=== PATIENT | female | born 1970 | race Caucasian/White ===

== ENCOUNTER 2017-11-30 11:27 | Emergency (ER) | payer SELFPAY ==
[2017-11-30 12:06] LABS: BASOPHILS 0.3 % (0-2); EOSINOPHILS 1.2 % (0-7); HEMATOCRIT 41.2 % (36.0-48.0); HEMOGLOBIN 13.6 g/dL (12-16); IMMATURE GRANULOCYTES 0.3 % (0-5); LYMPHOCYTES 17.4 % (15-50); MCV 93.8 fL (80.0-100.0); MEAN PLATELET VOLUME 8.4 fL (7.4-10.4); MONOCYTES 4.6 % (2-11); NEUTROPHILS 76.2 % (40-80); PLATELET COUNT 319 10x3/uL (130-400); RBC 4.39 10x6/uL (4.00-5.40); WBC 9.7 10x3/uL (4.8-10.8)
[2017-11-30 12:14] LABS: APPEARANCE HAZY (CLEAR); BACTERIA MODERATE /hpf (NONE SEEN); BILIRUBIN NEGATIVE (NEGATIVE); COLOR YELLOW (YELLOW); GLUCOSE NEGATIVE (NEGATIVE); KETONE NEGATIVE (NEGATIVE); MUCUS >1+ /lpf (NONE SEEN); NITRITE NEGATIVE (NEGATIVE); PROTEIN NEGATIVE (NEGATIVE); RED CELLS - URINE 0-5 /hpf (0-5); SPECIFIC GRAVITY 1.025 (1.005-1.020); SPERMATOZOA RARE /hpf (NONE SEEN); UROBILINOGEN NORMAL (NORMAL)
[2017-11-30 12:28] LABS: ALBUMIN 3.8 g/dL (3.4-5.0); ANION GAP 12.1 mmol/L (8-16); BILIRUBIN - TOTAL 0.57 mg/dL (0.2-1.3); CALCIUM 9.2 mg/dL (8.5-10.1); CARBON DIOXIDE 28.9 mmol/L (21.0-32.0); CREATININE - SERUM 1.1 mg/dL (0.6-1.3); PROTEIN - SERUM 7.5 g/dL (6.4-8.2)
[2017-11-30 13:30] LABS: HCG SERUM NEGATIVE (NEGATIVE)
== END 2017-11-30 14:54 | disposition home or self-care (01) ==
LOC: D.ER 11:27
PROVIDERS: Emergency Medicine
DX: M54.9 Dorsalgia, unspecified (principal); W19.XXXA Unspecified fall, initial encounter; Y93.89 Activity, other specified; Y92.019 Unspecified place in single-family (private) house as the place of occurrence of the external cause; F17.200 Nicotine dependence, unspecified, uncomplicated

== ENCOUNTER 2019-05-04 13:36 | Inpatient (IN) | payer MEDICAID ==
[~2019-05-04] VITALS: Ht 170.2 cm; Wt 72.6 kg
--- NOTE | ~2019-05-04 | HEMODYNAMI ---
PATIENT:ROSALIA ADAMS MEDICAL RECORD: [id number] : 66 LOCATION:D. D.1204 ADMISSION DATE: 05/04/19 Generatedon:05/08/201913:19 Patient name: ROSALIA ADAMS Patient #: [id number] SSN: D OB: 1970 Date of study: 05/08/2019 Page: Of Hemodynamic Procedure Report Patient Data Patient Demographics Procedure consent was obtained First Name: ROSALIA Gender: Female Last Name: ANGIE : 1970 Middle Initial: L Age: 48 year(s) Patient #: [id number] Race: Unknown Additional ID: [id number] Contact details Address: [address] [place] [address] 8 State: [place] City: [facility] Zip code: [address] Admission Admission Data Admission Date: 05/04/2019 Admission Time: 17:15 Room #: D.1204 Procedure Procedure Types Cath Procedure Peripheral Cath Diagnostic Procedure PICC PICC Line Placement Procedure Description Procedure Date Procedure Date: 05/08/2019 Procedure Start Time: 13:09 Procedure Staff Name Function Rocio Wiggins MD Performing Physician NICK RAUSCH RT Monitor Dennis Aponte RT Scrub Adwoa Walter RN Nurse Alejandra Mercado RN Nurse Procedure Data Cath Procedure Fluoroscopy Diagnostic fluoroscopy Total fluoroscopy Time: 0.3 time: 0.3 min min Diagnostic fluoroscopy Total fluoroscopy dose: 1 dose: 1 mGy mGy Hemodynamics Rest Pre Cath Intra NCS Post Cath Procedure Log Time Note 12:44:40 Time tracking: Regular hours (M-F 7:00 - 5:00) 12:44:42 Dennis Aponte RT (R) (CV) sent for patient. Start room use. 12:44:53 Patient received from Other to IR Alert and oriented. Tansferred to table in Supine position. 12:44:55 Signed procedure consent form obtained from patient. 12:44:57 Pre-procedure instructions explained to patient. 12:45:02 Use device set IR Diagnostic 12:45:05 Bag Decanter () opened to sterile field. 12:45:05 Sterile Angiographic Pack opened to sterile field. 12:45:06 Tegaderm 4 x 4 ([id number]) opened to sterile field. 12:45:09 Use device set PICC 12:45:10 SHIELD Sorbaview ([id number]) opened to sterile field. 12:45:20 Pre-op teaching completed and patient verbalized understanding. 13:03:19 Left Arm area was prepped with chlora-prep and draped in sterile fashion 13:06:28 --------ALL STOP TIME OUT------ 13:06:29 Final Timeout: patient, procedure, and site verified with staff and physician. All members of the team are in agreement. 13:06:47 Left Arm area was prepped with chlora-prep and draped in sterile fashion 13:07:49 Procedure Started 13:09:38 Local anesthetic to left arm with Lidocaine 1% by Rocio Wiggins MD.INITIAL ACCESS ONLY 13:09:45 Venous access obtained using ultrasound guidance. 13:10:35 PICC line was trimmed to 44cm and advanced to the superior vena cava.Position verified under fluoroscopy. 13:16:18 Procedure ended.(Physican Out) 13:16:41 Fluoroscopy time 00.03 minutes. 13:16:54 Fluoroscopy dose: 1 mGy 13:16:54 Flurop Dose total: 1 13:17:09 Post procedure instruction explained to patient.Patient verbalizes understanding. 13:17:27 Post-op/insertion site Left Axiliary dressed using a SorbaView Sheild. 13:17:30 Procedure and supply charges have been captured, reviewed, submitted and are correct. 13:19:02 See physician's report for complete and final results. 13:19:08 Patient transfered to Other with Bed. 13:19:09 End room use (Document Last) Device Usage Item Name Manufacture Quantity Catalog Hospital Part Current Minimal Lot# / Number Charge Number Stock Stock Serial# Code Bag Decanter Microtek 1 [id number] () Medical Inc. Sterile Cardinal 1 [id number] 5 Angiographic Health Pack Tegaderm 4 x 3M 1 [id number] 4 (1626W) SHIELD Centurion 1 [id number] 5 Morganavi ([id number]) Signature Audit [place] Stage Time Signature Unsigned Intra-Procedure 05/08/2019 NICK RAUSCH RT 1:19:25 PM (R) [facility] [address] [place] [address]
[2019-05-04] MEDS ORDERED: IBUPROFEN800 MG PO (13:56)
[2019-05-04] MEDS ORDERED: BENADRYL25 MG PO (13:57)
--- NOTE | 2019-05-04 14:00 | NUR ---
LT DP PULSE NOTED WITH DOPPLER. CAP REFILL <3 SEC.
[2019-05-04 14:27] LABS: BASOPHILS 0.5 % (0-2); EOSINOPHILS 1.8 % (0-7); HEMATOCRIT 37.5 % (36.0-48.0); HEMOGLOBIN 12.3 g/dL (12-16); IMMATURE GRANULOCYTES 0.2 % (0-5); LYMPHOCYTES 19.1 % (15-50); MCH 30.4 pg (26.0-34.0); MCHC 32.8 g/dL (31.0-37.0); MCV 92.6 fL (80.0-100.0); MEAN PLATELET VOLUME 8.4 fL (7.4-10.4); MONOCYTES 5.6 % (2-11); NEUTROPHILS 72.8 % (40-80); PLATELET COUNT 306 10x3/uL (130-400); RBC 4.05 10x6/uL (4.00-5.40); RDW 13.2 % (11.5-14.5); WBC 12.9 10x3/uL (4.8-10.8)
[2019-05-04 14:53] LABS: ALBUMIN 4.2 g/dL (3.4-5.0); ANION GAP 14.8 mmol/L (8-16); BILIRUBIN - TOTAL 0.66 mg/dL (0.2-1.3); CALCIUM 9.1 mg/dL (8.5-10.1); CARBON DIOXIDE 27.1 mmol/L (21.0-32.0); CREATININE - SERUM 0.9 mg/dL (0.6-1.3); POTASSIUM - SERUM 3.9 mmol/L (3.5-5.1); PROTEIN - SERUM 7.6 g/dL (6.4-8.2)
[2019-05-04 16:45] LABS: ERYTHROCYTE SEDIMENTATION RATE 22 mm/hr (0-30)
--- NOTE | 2019-05-04 17:11 | NUR ---
CULTURE SWABS OBTAINED OF LT ANKLE WOUND DRAINGE.
--- NOTE | 2019-05-04 17:57 | NUR ---
VANCOMYCIN INFUSING AT TIME OF TRANSFER - 175.
[2019-05-04] MEDS ORDERED: PROZAC20 MG PO (18:38)
[2019-05-04] MEDS ORDERED: PROBIOTIC BLEN1 EACH PO (18:38)
[2019-05-04] MEDS ORDERED: MULTI-DAY VITAM1 TAB PO (18:39)
--- NOTE | 2019-05-04 19:15 | NUR ---
PATIENT SITTING UP AT THE SIDE OF THE BED AND DENIES NEEDS AT THIS TIME. NO S/S OF DISTRESS. VSS, BLOOD PRESSURE ELEVATED. BED IN LOWEST POSITION AND CALL LIGHT WITHIN REACH. ENCOURAGED THE PATIENT TO CALL IF SHE HAS NEEDS. WILL CONTINUE TO MONITOR.
[2019-05-04 19:32] VITALS: BP 141/82
[2019-05-04 19:40] VITALS: BP 151/83; BMI 25.1
--- NOTE | 2019-05-04 19:40 | NUR ---
PATIENT RESTING IN BED AND DENIES NEEDS AT THIS TIME. COMPLETED ADMISSION ASSESSMENT. VSS. LOCATED A WALKER FOR THE PATIENT PER HER REQUEST. PATIENT DENIES OTHER NEEDS AT THIS TIME. BED IN LOWEST POSITION AND CALL LIGHT WITHIN REACH. ENCOURAGED THE PATIENT TO CALL IF SHE HAS NEEDS. WILL CONTINUE TO MONITOR.
--- NOTE | 2019-05-04 19:43 | NUR ---
THE PSYCHIATRIST NOTIFIED ANDREVIEWED BEHAVIOR AND ASSESSMENT RESULTS. PATIENT IS A LOW RISK AT THIS TIME. SHE WAS GIVEN RESOURCES AND SHE VERBALIZES UNDERSTANDING. NO FURTHER ORDERS AT THIS TIME. PATIENT DENIES WANTING TO KILL HERSELF. SHE IS IN CONSTANT FOOT PAIN FROM HARDWARE IN LEFT FOOT, AND RIGHT KNEE. SHE HIT A TREE IN DECEMBER OF 2017 AND NEARLY LOST HER FOOT. SHE GETS OVERWHELMED AND STRESSED OUT WITH THE CONSTANT PAIN AND INFECTIONS IN HER FOOT. SHE WANTS TO JUST GET BETTER AND NEEDS HELP. 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
[2019-05-05] VITALS (12 sets, daily range): BP systolic 108–141; BP diastolic 53–92; BMI 25.0
[2019-05-05 04:40] LABS: BASOPHILS 0.5 % (0-2); EOSINOPHILS 2.6 % (0-7); HEMATOCRIT 35.5 % (36.0-48.0); HEMOGLOBIN 11.5 g/dL (12-16); IMMATURE GRANULOCYTES 0.1 % (0-5); LYMPHOCYTES 26.8 % (15-50); MCH 30.3 pg (26.0-34.0); MCHC 32.4 g/dL (31.0-37.0); MCV 93.4 fL (80.0-100.0); MEAN PLATELET VOLUME 8.5 fL (7.4-10.4); MONOCYTES 7.5 % (2-11); NEUTROPHILS 62.5 % (40-80); PLATELET COUNT 263 10x3/uL (130-400); RDW 13.4 % (11.5-14.5)
[2019-05-05 04:59] LABS: ALBUMIN 3.2 g/dL (3.4-5.0); ALKALINE PHOSPHATASE 83 U/L (46-116); ALT (SGPT) 15 U/L (10-68); BILIRUBIN - TOTAL 0.42 mg/dL (0.2-1.3); CALC OSMOLALITY 278 mosm/kg (275-300); CALCIUM 8.5 mg/dL (8.5-10.1); CARBON DIOXIDE 31.6 mmol/L (21.0-32.0); CHLORIDE - SERUM 105 mmol/L (98-107); CREATININE - SERUM 0.8 mg/dL (0.6-1.3); GLUCOSE 104 mg/dL (74-106); POTASSIUM - SERUM 4.2 mmol/L (3.5-5.1); PROTEIN - SERUM 6.3 g/dL (6.4-8.2); SODIUM 140 mmol/L (136-145); UREA NITROGEN 13 mg/dL (7-18); eGFR NON AFRICAN AMERICAN 80 mL/min (90-120)
--- NOTE | 2019-05-05 07:05 | NUR ---
PATIENT RECIEVED FROM PREVIOUS SHIFT RESTING IN BED. DRESSING CHANGED TO LEFT ANKLE WITH 1/4 CM DIAMETER OPEN AREA AND EDEMA. PATIENT ALERT AND ORIENTED.
--- NOTE | 2019-05-05 09:00 | NUR ---
PATIENT GIVEN MORPHINE FOR PAIN TO LEFT ANKLE. PATIENT MADE NPO FOR HARDWARE REMOVAL WITH I&D LATER TODAY, CONSENTS SIGNED AND PLACED ON CHART
[2019-05-05 17:12] LABS: % SATURATION 11 % (15-55); IRON 33 ug/dl (35-150); TOTAL IRON BIND CAPACITY 286 ug/dl (260-445); UNSAT IRON BIND CAPACITY 253 ug/dl (150-375)
--- NOTE | 2019-05-05 18:14 | NUR ---
PATIENT TAKEN TO OR FOR REMOVAL OF HARDWARE AND I&D
--- NOTE | 2019-05-05 18:22 | MORECARE ---
CASE MANAGEMENT DISCHARGE SUMMARY PATIENT: ROSALIA ADAMS UNIT: [id number] ADM DATE: 05/04/19 AGE: 48 : 66 SEX: F ROOM/BED: D.1204 AUTHOR: MICHELA KAN PHYSICIAN: REFERRING PHYSICIAN: MALLORIE SIERRA MD DATE OF SERVICE: 05/05/19 Discharge Plan Patient Name: ROSALIA ADAMS Facility: [facility]:[place] : 1970 Planned Disposition: Home Anticipated Discharge Date: Discharge Date: Expected LOS: Initial Reviewer: [email or web address] Initial Review Date: 05/05/2019 Generated: 05/05/19 7:22 pm Patient Name: ROSALIA ADAMS Page 31789 at 1822 All edits/amendments must be made on the electronic document DICTATION DATE: 05/05/191821 SENIOR ENLISTED ADVISOR: JEREMIAH 05/05/191821 RPT#: [id number] PA DATE: STATUS: ADM IN [facility] [address] [place] [address] END OF REPORT
--- NOTE | 2019-05-05 18:30 | MORECARE ---
CASE MANAGEMENT DISCHARGE SUMMARY PATIENT: ROSALIA ADAMS UNIT: [id number] ADM DATE: 05/04/19 AGE: 48 : 66 SEX: F ROOM/BED: D.1204 AUTHOR: MICHELA KAN PHYSICIAN: REFERRING PHYSICIAN: MALLORIE SIERRA MD DATE OF SERVICE: 05/05/19 Discharge Plan Patient Name: ROSALIA ADAMS Facility: [facility]:[place] : 1970 Planned Disposition: Home Anticipated Discharge Date: Discharge Date: Expected LOS: Initial Reviewer: [email or web address] Initial Review Date: 05/05/2019 Generated: 05/05/19 7:30 pm DCPIA - Discharge Planning Initial Assessment Updated by [email or web address]: Morena Garcia on 05/05/19 6:25 pm * Is the patient Alert and Oriented? Yes * How many steps to enter\exit or inside your home? 30 * PCP ANANTH * Pharmacy [facility] / [place] * Preadmission Environment Home Alone * ADLs Independent * Other Equipment W/C, WALKER * List name and contact numbers for known caregivers / representatives who currently or will assist patient after discharge: CHANTELL DIETZ - SISTER- [phone] VILMA MALONEY- SON- [phone] * Verbal permission to speak to the caregivers and representatives has been obtained from the patient. Yes * Community resources currently utilized None * Additional services required to return to the preadmission environment? No * Can the patient safely return to the preadmission environment? Yes * Has this patient been hospitalized within the prior 30 days at any hospital? No Last DP export: 05/05/19 5:22 p Patient Name: ROSALIA ADAMS Page [id number] at 1830 All edits/amendments must be made on the electronic document DICTATION DATE: 05/05/191829 WOOD DIE MAKER: JEREMIAH 05/05/191829 RPT#: [id number] DC DATE: STATUS: ADM IN [facility] [address] [place] [address] END OF REPORT
--- NOTE | 2019-05-05 18:37 | MORECARE ---
CASE MANAGEMENT DISCHARGE SUMMARY PATIENT: ROSALIA ADAMS UNIT: [id number] ADM DATE: 05/04/19 AGE: 48 : 66 SEX: F ROOM/BED: D.1204 AUTHOR: MICHELA KAN PHYSICIAN: REFERRING PHYSICIAN: MALLORIE SIERRA MD DATE OF SERVICE: 05/05/19 Discharge Plan Patient Name: ROSALIA ADAMS Facility: [facility]:[place] : 1970 Planned Disposition: Home Anticipated Discharge Date: Discharge Date: Expected LOS: Initial Reviewer: [email or web address] Initial Review Date: 05/05/2019 Generated: 05/05/19 7:37 pm Comments DCP- Discharge Planning Updated by [email or web address]: Morena Garcia on 05/05/19 5:[address] LATE ENTRY -05/05/19 @ 1230 Patient Name: ROSALIA ADAMS Admission Status: ER Accout number: [id number] Admission Date: 05-04-2019 : 1970 Admission Diagnosis: Attending: MALLORIE SIERRA Current LOS: 1 Anticipated DC Date: Planned Disposition: Home Primary Insurance: MEDICAID [place] PENDING Discharge Planning Comments: CM met with patient to complete initial dc planning assessment. CM educated patient on the CM role and verbal consent given by patient to complete assessment. Patient lives at home alone where she is independent with her care. At discharge patient plans to return home and feels this is a safe discharge. Patient states that her brother lives next door. Patient stated that she has 30 steps to go up to get into her apartment. She is concerned because she is having surgery today on her ankle. CM discussed availability of home health, rehab services, and medical equipment. Patient states that she does have a wheelchair and walker. Patient has Medicaid pending and will most likely need HH for PT upon discharge. SHAINA signed for no preference in HH. Patient will also need assistance with medications upon discharge. CM will continue to follow and will assist as needed with dc plans/needs. Consumer Safety Officer: Morena Garcia DCPIA - Discharge Planning Initial Assessment Updated by [email or web address]: Morena Garcia on 05/05/19 6:25 pm * Is the patient Alert and Oriented? Yes * How many steps to enter\exit or inside your home? 30 * PCP ANANTH * Pharmacy [facility] / [place] * Preadmission Environment Home Alone * ADLs Independent * Other Equipment W/C, WALKER * List name and contact numbers for known caregivers / representatives who currently or will assist patient after discharge: CHANTELL DIETZ - SISTER- [phone] VILMA MALONEY- SON- [phone] * Verbal permission to speak to the caregivers and representatives has been obtained from the patient. Yes * Community resources currently utilized None * Additional services required to return to the preadmission environment? No * Can the patient safely return to the preadmission environment? Yes * Has this patient been hospitalized within the prior 30 days at any hospital? No Coverage Notice Reviewer: [email or web address] Kayden Garcia Notice Issued Date-Time: 05/05/2019 12:30 Notice Type: Patient Choice Letter Notice Delivered To: Patient Relationship to Patient: Self Cutter Hot Knife Name: Delivery Method: HAND - Hand Delivered Stephania Days: Prior Verbal Notification: Recipient Understood Notice: Yes Recipient Signature: Yes Med Rec Note Co-signed by Attending: Coverage Notice Comment: Last DP export: 05/05/19 5:30 p Patient Name: ROSALIA ADAMS Page [id number] at 1837 All edits/amendments must be made on the electronic document DICTATION DATE: 05/05/191836 COTTON FARMWORKER: JEREMIAH 05/05/191836 RPT#: [id number] DC DATE: STATUS: ADM IN [facility] [address] [place] [address] END OF REPORT
--- NOTE | 2019-05-05 20:08 | NUR ---
REC'D PATIENT FROM RECOVERY. PATIENT AAO WITH NO S/S OF DISTRESS. VSS. PATIENT DENIES NEEDS AT THIS TIME. BED IN LOWEST POSITION AND CALL LIGHT WITHIN REACH. ENCOURAGED THE PATIENT TO CALL IF SHE HAS NEEDS. WILL CONTINUE TO MONITOR.
--- NOTE | 2019-05-05 21:01 | NUR ---
PATIENT VOIDED 400ML POSTOP
[2019-05-06 03:56] VITALS: BP 109/67
[2019-05-06 07:23] LABS: BASOPHILS 0.1 % (0-2); EOSINOPHILS 0 % (0-7); HEMATOCRIT 34.9 % (36.0-48.0); HEMOGLOBIN 11.6 g/dL (12-16); IMMATURE GRANULOCYTES 0.2 % (0-5); LYMPHOCYTES 8.5 % (15-50); MCH 30.5 pg (26.0-34.0); MCHC 33.2 g/dL (31.0-37.0); MCV 91.8 fL (80.0-100.0); MEAN PLATELET VOLUME 8.5 fL (7.4-10.4); MONOCYTES 4.8 % (2-11); NEUTROPHILS 86.4 % (40-80); RDW 12.9 % (11.5-14.5); WBC 8.5 10x3/uL (4.8-10.8)
[2019-05-06 07:26] LABS: PLATELET COUNT 318 10x3/uL (130-400)
[2019-05-06 07:52] LABS: ALBUMIN 3.2 g/dL (3.4-5.0); ANION GAP 11.2 mmol/L (8-16); BILIRUBIN - TOTAL 0.72 mg/dL (0.2-1.3); CALCIUM 9.1 mg/dL (8.5-10.1); CARBON DIOXIDE 30.2 mmol/L (21.0-32.0); CREATININE - SERUM 0.9 mg/dL (0.6-1.3); MAGNESIUM - SERUM 2.2 mg/dL (1.8-2.4); POTASSIUM - SERUM 4.4 mmol/L (3.5-5.1); PROTEIN - SERUM 6.5 g/dL (6.4-8.2)
[2019-05-06 08:00] VITALS: BP 118/82
--- NOTE | 2019-05-06 08:16 | MORECARE ---
CASE MANAGEMENT DISCHARGE SUMMARY PATIENT: ROSALIA ADAMS UNIT: [id number] ADM DATE: 05/04/19 AGE: 48 : 66 SEX: F ROOM/BED: D.1204 AUTHOR: MICHELA KAN PHYSICIAN: REFERRING PHYSICIAN: MALLORIE SIERRA MD DATE OF SERVICE: 05/06/19 Discharge Plan Patient Name: ROSALIA ADAMS Facility: [facility]:[employer] : 1970 Planned Disposition: Home Anticipated Discharge Date: Discharge Date: Expected LOS: Initial Reviewer: [email or web address] Initial Review Date: 05/05/2019 Generated: 05/06/19 9:16 am Comments DCP- Discharge Planning Updated by [email or web address]: Morena Garcia on 05/05/19 5:[address] LATE ENTRY -05/05/19 @ 1230 Patient Name: ROSALIA ADAMS Admission Status: ER Accout number: [id number] Admission Date: 05-04-2019 : 1970 Admission Diagnosis: Attending: MALLORIE SIERRA Current LOS: 1 Anticipated DC Date: Planned Disposition: Home Primary Insurance: MEDICAID [place] PENDING Discharge Planning Comments: CM met with patient to complete initial dc planning assessment. CM educated patient on the CM role and verbal consent given by patient to complete assessment. Patient lives at home alone where she is independent with her care. At discharge patient plans to return home and feels this is a safe discharge. Patient states that her brother lives next door. Patient stated that she has 30 steps to go up to get into her apartment. She is concerned because she is having surgery today on her ankle. CM discussed availability of home health, rehab services, and medical equipment. Patient states that she does have a wheelchair and walker. Patient has Medicaid pending and will most likely need HH for PT upon discharge. SHAINA signed for no preference in HH. Patient will also need assistance with medications upon discharge. CM will continue to follow and will assist as needed with dc plans/needs. Bilingual Customer Service: Morena Garcia DCPIA - Discharge Planning Initial Assessment Updated by [email or web address]: Morena Garcia on 05/05/19 6:25 pm * Is the patient Alert and Oriented? Yes * How many steps to enter\exit or inside your home? 30 * PCP ANANTH * Pharmacy [facility] / [place] * Preadmission Environment Home Alone * ADLs Independent * Other Equipment W/C, WALKER * List name and contact numbers for known caregivers / representatives who currently or will assist patient after discharge: CHANTELL DIETZ - SISTER- [phone] VILMA MALONEY- SON- [phone] * Verbal permission to speak to the caregivers and representatives has been obtained from the patient. Yes * Community resources currently utilized None * Additional services required to return to the preadmission environment? No * Can the patient safely return to the preadmission environment? Yes * Has this patient been hospitalized within the prior 30 days at any hospital? No Coverage Notice Reviewer: [email or web address] Kayden Garcia Notice Issued Date-Time: 05/05/2019 12:30 Notice Type: Patient Choice Letter Notice Delivered To: Patient Relationship to Patient: Self Buckle Strap Drum Operator Name: Delivery Method: HAND - Hand Delivered Stephania Days: Prior Verbal Notification: Recipient Understood Notice: Yes Recipient Signature: Yes Med Rec Note Co-signed by Attending: Coverage Notice Comment: Last DP export: 05/05/19 5:37 p Patient Name: ROSALIA ADAMS Page 49378 at 0816 All edits/amendments must be made on the electronic document DICTATION DATE: 05/06/19815 LEVER MILLER: JEREMIAH 05/06/19815 RPT#: [id number] DC DATE: STATUS: ADM IN [facility] [address] [place] [address] END OF REPORT
--- NOTE | 2019-05-06 08:19 | NUR ---
PT ALERT X 4. BREATH SOUNDS CLEAR BILAT. IV TO RIGHT HAND, PATENT, DRESSING CDI. DRESSING TO LEFT FOOT CDI. PLEXI PULSE ON RIGHT FOOT. PT REPORTING PAIN OF 5/10, MEDICATED PER ORDERS, WILL MONITOR. BED LOW, CALL LIGHT IN REACH. NO OTHER NEEDS AT THIS TIME.
[2019-05-06 17:22] VITALS: BP 119/71
--- NOTE | 2019-05-06 19:54 | NUR ---
REPORT RECIEVED AND ROUNDING COMPLETE. PATIENT HAS RIGHT WRIST PIV THAT HAS BUBBLED UP. REMOVED WRIST PIV, CATH INTACT, NO BLEEDING NOTED. PLACED A 22 GAUGE IN LEFT BREAST, 1 STICK, PATIENT TOLERATED WELL. RESTARTED PATIENT'S ABX. PATIENT HAS LEFT LEG ELEVATED AT THIS TIME. PEXI ON RIGHT FOOT. PATIENT IS A&O X4. PATIENT STATES SHE HAS NO NEEDS AT THIS TIME. CALL LIGHT WITHIN REACH AND BED IN LOWEST LOCKED POSITION.
[2019-05-06 20:14] VITALS: BP 165/82
--- NOTE | 2019-05-06 22:09 | NUR ---
I have reviewed this patient and I concur with the Shift Assessment completed by the Licensed Practical Nurse today this shift.
[2019-05-07 04:38] VITALS: BP 124/81
[2019-05-07 05:34] LABS: BASOPHILS 0.4 % (0-2); EOSINOPHILS 2.9 % (0-7); HEMATOCRIT 31.7 % (36.0-48.0); HEMOGLOBIN 10.2 g/dL (12-16); IMMATURE GRANULOCYTES 0.1 % (0-5); LYMPHOCYTES 28.4 % (15-50); MCHC 32.2 g/dL (31.0-37.0); MCV 93.2 fL (80.0-100.0); MEAN PLATELET VOLUME 8.5 fL (7.4-10.4); MONOCYTES 8.6 % (2-11); NEUTROPHILS 59.6 % (40-80); PLATELET COUNT 298 10x3/uL (130-400); RDW 13.3 % (11.5-14.5)
[2019-05-07 06:01] LABS: ALBUMIN 3.1 g/dL (3.4-5.0); ANION GAP 12.4 mmol/L (8-16); BILIRUBIN - TOTAL 0.3 mg/dL (0.2-1.3); CALCIUM 8.7 mg/dL (8.5-10.1); CARBON DIOXIDE 30.6 mmol/L (21.0-32.0); PROTEIN - SERUM 6.2 g/dL (6.4-8.2); VANCOMYCIN - TROUGH 18.5 ug/mL (10.0-20.0)
[2019-05-07 09:59] VITALS: BP 141/89
--- NOTE | 2019-05-07 10:17 | NUR ---
STATED TO DR. MARSHALL THAT PT STATED TO ME THAT SHE HAS NOT HAD A BM SINCE ADMISSION. HE STATES HE WILL ADDRESS IT.
[2019-05-07 12:10] VITALS: BP 165/95
--- NOTE | 2019-05-07 12:40 | NUR ---
DR. MASTERS DID PT'S LEFT ANKLE DRESSING CHANGE.
--- NOTE | 2019-05-07 13:00 | NUR ---
DR. MASTERS ASKED ME TO SPEAK WITH DR. MARSHALL AND STATE TO HIM SHE WILL NEED TO BE ON IV ABX FOR [address] MARSHALL AND HE VERBALIZED UNDERSTANDING.
--- NOTE | 2019-05-07 13:43 | NUR ---
PT UP WALKING WITH WALKER WITH P.T.
[2019-05-07 14:53] VITALS: Ht 170.2 cm; Wt 72.6 kg
--- NOTE | 2019-05-07 15:14 | NUR ---
PT LYING IN BED. EYES CLOSED. CHEST RISING AND FALLING. BED LOW. CL IN REACH.
[2019-05-07 17:08] VITALS: BP 139/83
[2019-05-07 19:19] VITALS: BP 151/82
--- NOTE | 2019-05-07 19:36 | NUR ---
EVENING ROUNDS COMPLETED. VSS, AAOX4 NO S/S OF DISTRESS. DRESSING TO RIGHT FOOT C/D/I. BOTH FEET ELEVATED IN BED. PT DENIES PAIN AT THIS TIME. PT DENIES ANY FURTHER NEEDS AT THIS TIME. WILL CPOC. CL WITHIN REACH.
[2019-05-08 00:51] VITALS: BP 150/92
[2019-05-08 04:13] VITALS: BP 147/93
--- NOTE | 2019-05-08 07:10 | NUR ---
REPORT RECEIVED FROM PERSONALIZATION SPECIALIST AND PATIENT CARE ASSUMED. PATIENT SITTING UP IN BED CRYING. IT IS NOTED THAT IV CATHETER IN LAYING IN BED. PATIENT STATES THAT IT FELL OUT DURING THE NIGHT. WHEN QUESTIONED ABOUT CRYING, PATIENT STATES THAT SHE IS VERY OVER WHELMED WITH MEDICAL ISSUES.SPENT SEVERAL MINUTES WITH PATIENT ATTEMPINGT TO CALM AND GIVE REASURANCE. WILL SEEK VASCULAR ACCESS TO IV ACCESS.
[2019-05-08 07:43] LABS: BASOPHILS 0.8 % (0-2); EOSINOPHILS 4.7 % (0-7); HEMATOCRIT 33.4 % (36.0-48.0); HEMOGLOBIN 10.9 g/dL (12-16); LYMPHOCYTES 26.2 % (15-50); MCH 30.3 pg (26.0-34.0); MCHC 32.6 g/dL (31.0-37.0); MCV 92.8 fL (80.0-100.0); MEAN PLATELET VOLUME 8.6 fL (7.4-10.4); MONOCYTES 9.8 % (2-11); NEUTROPHILS 58.5 % (40-80); PLATELET COUNT 312 10x3/uL (130-400); RDW 13.1 % (11.5-14.5); WBC 5.3 10x3/uL (4.8-10.8)
[2019-05-08 08:08] LABS: ANION GAP 9.2 mmol/L (8-16); BILIRUBIN - TOTAL 0.35 mg/dL (0.2-1.3); CARBON DIOXIDE 33.4 mmol/L (21.0-32.0); MAGNESIUM - SERUM 1.8 mg/dL (1.8-2.4); POTASSIUM - SERUM 4.6 mmol/L (3.5-5.1)
[2019-05-08 08:46] VITALS: BP 166/57
--- NOTE | 2019-05-08 09:00 | NUR ---
NO VASCULAR ACCESS TEAM AVAILABLE. ORDER RECEVED FOR PICC LINE. PATIENT TO NEEDS IV ABX AT HOME FOR 2 WEEKS. CONSULT PUT IN FOR IR. PATIENT NPO AND CONSENTS OBTAINED. PATIENT IS STABLE AND VSS. WILL CONTINUE TO MONITOR. SR UP X 2 BED IN LOW POSITION AND CALL LIGHT IN REACH.
--- NOTE | 2019-05-08 10:18 | NUR ---
DR MASTERS IN ROOM. PATIENT CAN BE DCD TO HOME AND RECEIVE IV THERAPY AT HOME AND FOLLOW UP WITH HIM IN 2 WEEKS. PATIENT WILL NEED MID LINE OR PICC LINE. ORDER TO BE PUT IN .
[2019-05-08 12:29] VITALS: BP 149/93
--- NOTE | 2019-05-08 12:30 | NUR ---
PATIENT HAS REMAINED NPO. PATIENT IS STABLE AND VSS. PATIENT TO IR VIA WC AND IR TEAM.
--- NOTE | 2019-05-08 13:30 | NUR ---
PATIENT RETURNED FROM IR VIA WC AND IR TEAM. PATIENT IS STABLE AND VS. PATIENT HAS PICC LINE TO LEFT UPPER ARM. PATIENT DENIES ANY NEEDS OR PAIN. WILL CONTINUE TO MONITOR. SR UP X 2 BED IN LOW POSITION AND CALL LIGHT IN REACH.
--- NOTE | 2019-05-08 15:00 | NUR ---
DR MARSHALL IN ROOM. PATIENT IS CRYING. NEW ORDERS RECEIVED.
[2019-05-08 15:49] VITALS: BP 164/100
--- NOTE | 2019-05-08 18:06 | NUR ---
PATIENT LAYING IN BED WITH EYES CLOSED AND BREATHING EVENLY. SR UP X 2 BED IN LOW POSITION AND CALL LIGHT IN REACH. PATIENT IS STABLE AND VSS. WILL CONTINUE TO MONITOR.
[2019-05-08 19:58] VITALS: BP 151/102
[2019-05-09] VITALS: BP 150/85
[2019-05-09 04:00] VITALS: BP 131/83
[2019-05-09 06:12] LABS: BASOPHILS 0.8 % (0-2); EOSINOPHILS 5.1 % (0-7); HEMATOCRIT 33.6 % (36.0-48.0); HEMOGLOBIN 11.2 g/dL (12-16); IMMATURE GRANULOCYTES 0.2 % (0-5); LYMPHOCYTES 20.7 % (15-50); MCH 30.7 pg (26.0-34.0); MCHC 33.3 g/dL (31.0-37.0); MCV 92.1 fL (80.0-100.0); MEAN PLATELET VOLUME 8.7 fL (7.4-10.4); MONOCYTES 9.7 % (2-11); NEUTROPHILS 63.5 % (40-80); PLATELET COUNT 289 10x3/uL (130-400); RBC 3.65 10x6/uL (4.00-5.40); RDW 13.2 % (11.5-14.5); WBC 6.1 10x3/uL (4.8-10.8)
[2019-05-09 06:39] LABS: ALBUMIN 3.1 g/dL (3.4-5.0); BILIRUBIN - TOTAL 0.49 mg/dL (0.2-1.3); CALCIUM 9.1 mg/dL (8.5-10.1); CARBON DIOXIDE 30.8 mmol/L (21.0-32.0); CREATININE - SERUM 1.1 mg/dL (0.6-1.3); MAGNESIUM - SERUM 1.9 mg/dL (1.8-2.4); PROTEIN - SERUM 6.4 g/dL (6.4-8.2)
[2019-05-09 06:40] LABS: POTASSIUM - SERUM 3.8 mmol/L (3.5-5.1)
[2019-05-09 08:00] VITALS: BP 143/93
--- NOTE | 2019-05-09 10:03 | NUR ---
PATIENT IS ALERT/ORIENT. CALL LIGHT WITHIN REACH. VOICES NO NEEDS AT THIS TIME. WILL CONTINUE WITH PLAN OF CARE. DR TATUM INTO SEE PATIENT. SEE NOTES
[2019-05-09] MEDS ORDERED: VANCOMYCIN 1 GM/1 G1 IV (11:02)
[2019-05-09 12:00] VITALS: BP 152/83
--- NOTE | 2019-05-09 13:46 | NUR ---
DR MARSHALL INTO SEE PATIENT. ORDERS TO DISCHARGE TO HOME.
[2019-05-09 16:00] VITALS: BP 150/89
--- NOTE | 2019-05-09 16:48 | MORECARE ---
CASE MANAGEMENT DISCHARGE SUMMARY PATIENT: ROSALIA ADAMS UNIT: [id number] ADM DATE: 05/04/19 AGE: 48 : 66 SEX: F ROOM/BED: D.1204 AUTHOR: LORETADOC PHYSICIAN: REFERRING PHYSICIAN: MALLORIE SIERRA MD DATE OF SERVICE: 05/09/19 Discharge Plan Patient Name: ROSALIA ADAMS Facility: [facility]:[place] : 1970 Planned Disposition: Home Anticipated Discharge Date: Discharge Date: Expected LOS: Initial Reviewer: [email or web address] Initial Review Date: 05/05/2019 Generated: 05/09/19 5:48 pm DCP- Discharge Planning Updated by [email or web address]: Morena Garcia on 05/05/19 5:[address] LATE ENTRY -05/05/19 @ 1230 Patient Name: ROSALIA ADAMS Admission Status: ER Accout number: [id number] Admission Date: 05-04-2019 : 1970 Admission Diagnosis: Attending: MALLORIE SIERRA Current LOS: 1 Anticipated DC Date: Planned Disposition: Home Primary Insurance: MEDICAID [place] PENDING Discharge Planning Comments: CM met with patient to complete initial dc planning assessment. CM educated patient on the CM role and verbal consent given by patient to complete assessment. Patient lives at home alone where she is independent with her care. At discharge patient plans to return home and feels this is a safe discharge. Patient states that her brother lives next door. Patient stated that she has 30 steps to go up to get into her apartment. She is concerned because she is having surgery today on her ankle. CM discussed availability of home health, rehab services, and medical equipment. Patient states that she does have a wheelchair and walker. Patient has Medicaid pending and will most likely need HH for PT upon discharge. SHAINA signed for no preference in HH. Patient will also need assistance with medications upon discharge. CM will continue to follow and will assist as needed with dc plans/needs. Manager [place]: Morena Garcia DCPIA - Discharge Planning Initial Assessment Updated by [email or web address]: Morena Garcia on 05/05/19 6:25 pm * Is the patient Alert and Oriented? Yes * How many steps to enter\exit or inside your home? 30 * PCP ANANTH * Pharmacy [facility] / [place] * Preadmission Environment Home Alone * ADLs Independent * Other Equipment W/C, WALKER * List name and contact numbers for known caregivers / representatives who currently or will assist patient after discharge: CHANTELL DIETZ - SISTER- [phone] VILMA MALONEY- SON- [phone] * Verbal permission to speak to the caregivers and representatives has been obtained from the patient. Yes * Community resources currently utilized None * Additional services required to return to the preadmission environment? No * Can the patient safely return to the preadmission environment? Yes * Has this patient been hospitalized within the prior 30 days at any hospital? No External Providers External Provider: [facility] Next Contact Date: Service Request Date: Service Type: Resolution: Reviewer: Comments: Coverage Notice Reviewer: [email or web address] - Morena Garcia Notice Issued Date-Time: 05/05/2019 12:30 Notice Type: Patient Choice Letter Notice Delivered To: Patient Relationship to Patient: Self Loan Service Officer Name: Delivery Method: HAND - Hand Delivered Stephania Days: Prior Verbal Notification: Recipient Understood Notice: Yes Recipient Signature: Yes Med Rec Note Co-signed by Attending: Coverage Notice Comment: Last DP export: 05/06/19 7:16 a Patient Name: ROSALIA ADAMS Page [id number] at 1648 All edits/amendments must be made on the electronic document DICTATION DATE: 05/09/191647 PROFESSOR OF FOREST PLANNING: JEREMIAH 05/09/191647 RPT#: [id number] DC DATE: STATUS: ADM IN [facility] [address] [place] [address] END OF REPORT
--- NOTE | 2019-05-09 18:14 | NUR ---
PATIENT GIVEN DISCHARGE INSTRUTIONS.
--- NOTE | 2019-05-09 20:10 | MORECARE ---
CASE MANAGEMENT DISCHARGE SUMMARY PATIENT: ROSALIA ADAMS UNIT: [id number] ADM DATE: 05/04/19 AGE: 48 : 66 SEX: F ROOM/BED: D.1204 AUTHOR: LORETADOC PHYSICIAN: REFERRING PHYSICIAN: MALLORIE SIERRA MD DATE OF SERVICE: 05/09/19 Discharge Plan Patient Name: ROSALIA ADAMS Facility: [facility]:[place] : 1970 Planned Disposition: Home Anticipated Discharge Date: Discharge Date: 05/09/2019 Expected LOS: Initial Reviewer: [email or web address] Initial Review Date: 05/05/2019 Generated: 05/09/19 9:09 pm Comments DCP- Discharge Planning Updated by [email or web address]: Morena Garcia on 05/09/19 7:[address] Late Entry 05/08/19 CM was notified that patient is going to need home IV antibiotics upon discharge. CM notified Dr. Woo of patient not having a payer source. He stated that the patient has osteomyelitis and CDC requires IV antibiotics for 6 wks. CM called several infusion companies to get daniel quotes. CM received a daniel quote from [employer] of 43.62 daily for Vancomycin 1GM q 12 hr for 6 weeks. [employer] of $60.00 daily. CM approach the patient to discuss availability to pay for medications. Patient burst into tears and stated I should have just stayed at home and . CM reassured patient that we will continue to work on this. CM contacted Buffy Paiz with [employer] of the problem and she suggested that the patient speak with their financial office and they can work out a payment plan or arrange for financial assistance. CM also contacted [employer] about Medicaid and they stated they would try to expedite application. CM will continue to follow and assist as needed with discharge planning / needs DCP- Discharge Planning Updated by [email or web address]: Morena Garcia on 05/05/19 5:[address] LATE ENTRY -05/05/19 @ 1230 Patient Name: ROSALIA ADAMS Admission Status: ER Accout number: [id number] Admission Date: 05-04-2019 : 1970 Admission Diagnosis: Attending: MALLORIE SIERRA Current LOS: 1 Anticipated DC Date: Planned Disposition: Home Primary Insurance: MEDICAID [place] PENDING Discharge Planning Comments: CM met with patient to complete initial dc planning assessment. CM educated patient on the CM role and verbal consent given by patient to complete assessment. Patient lives at home alone where she is independent with her care. At discharge patient plans to return home and feels this is a safe discharge. Patient states that her brother lives next door. Patient stated that she has 30 steps to go up to get into her apartment. She is concerned because she is having surgery today on her ankle. CM discussed availability of home health, rehab services, and medical equipment. Patient states that she does have a wheelchair and walker. Patient has Medicaid pending and will most likely need HH for PT upon discharge. SHAINA signed for no preference in HH. Patient will also need assistance with medications upon discharge. CM will continue to follow and will assist as needed with dc plans/needs. Radio Communication Coordinator: Morena Garcia DCPIA - Discharge Planning Initial Assessment Updated by [email or web address]: Morena Garcia on 05/05/19 6:25 pm * Is the patient Alert and Oriented? Yes * How many steps to enter\exit or inside your home? 30 * PCP ANANTH * [facility] * Preadmission Environment Home Alone * ADLs Independent * Other Equipment W/C, WALKER * List name and contact numbers for known caregivers / representatives who currently or will assist patient after discharge: CHANTELL DIETZ - SISTER- [phone] VILMA MALONEY- SON- [phone] * Verbal permission to speak to the caregivers and representatives has been obtained from the patient. Yes * Community resources currently utilized None * Additional services required to return to the preadmission environment? No * Can the patient safely return to the preadmission environment? Yes * Has this patient been hospitalized within the prior 30 days at any hospital? No Coverage Notice Reviewer: [id number] - Morena Garcia Notice Issued Date-Time: 05/05/2019 12:30 Notice Type: Patient Choice Letter Notice Delivered To: Patient Relationship to Patient: Self Extracorporeal Circulation Specialist Name: Delivery Method: HAND - Hand Delivered Stephania Days: Prior Verbal Notification: Recipient Understood Notice: Yes Recipient Signature: Yes Med Rec Note Co-signed by Attending: Coverage Notice Comment: Last DP export: 05/09/19 3:48 p Patient Name: ROSALIA ADAMS Page [id number] at 2010 All edits/amendments must be made on the electronic document DICTATION DATE: 05/09/192008 ROOM DESIGNER: JEREMIAH 05/09/192008 RPT#: [id number] DC DATE:05/09/19 STATUS: DIS IN [facility] [address] [place] [address] END OF REPORT
--- NOTE | 2019-05-09 20:28 | MORECARE ---
CASE MANAGEMENT DISCHARGE SUMMARY PATIENT: ROSALIA ADAMS UNIT: [id number] ADM DATE: 05/04/19 AGE: 48 : 66 SEX: F ROOM/BED: D.1204 AUTHOR: LORETA,DOC PHYSICIAN: REFERRING PHYSICIAN: MALLORIE SIERRA MD DATE OF SERVICE: 05/09/19 Discharge Plan Patient Name: ROSALIA ADAMS Facility: [facility]:[place] : 1970 Planned Disposition: Home Anticipated Discharge Date: Discharge Date: 05/09/2019 Expected LOS: Initial Reviewer: [id number] Initial Review Date: 05/05/2019 Generated: 05/09/19 9:28 pm Comments DCP- Discharge Planning Updated by [email or web address]: Morena Garcia on 05/09/19 7:[address] Late Entry 05/09/19 CM got with Buffy Paiz @ [place] [phone]. CM explained that patient doesn't meet for Medicaid spend- down d/t not being permanently disabled. CM spoke with patient and gave Buffy Paiz patient's number in room to see if they can work out a solution. CM explained that if they couldn't work things out we may have to set her up as an outpatient here at hospital. CM asked if the patient is capable of teaching would she be able to administer to herself since we will not be able to get Home Health d/t no insurance provider. Buffy Paiz stated yes they would be able to teach her and provide an extension set to PICC line so patient could reach to administer. Patient would not agree to daniel quote at first but Buffy Paiz told her that if she agrees to daniel quote as long as she pays something each month they will not stop services. Patient then agreed. CM explained that if her Medicaid gets approved then it will take care of her infusions. CM set up for patient to come to Outpatient @ [facility] for PICC dressing changes and Vanc trough weekly for 6 weeks. The first appointment will be May 15 @ 1100. Patient states she will have transportation to outpatient for her appointments. CM has notified nursing of all information. Buffy Paiz is here doing patient teaching at bedside. CM will continue to follow and assist as needed with discharge planning / needs DCP- Discharge Planning Updated by [id number]: Morena Garcia on 05/09/19 7:[address] Late Entry 05/08/19 CM was notified that patient is going to need home IV antibiotics upon discharge. CM notified Dr. Woo of patient not having a payer source. He stated that the patient has osteomyelitis and CDC requires IV antibiotics for 6 wks. CM called several infusion companies to get daniel quotes. CM received a daniel quote from [employer] of 43.62 daily for Vancomycin 1GM q 12 hr for 6 weeks. [employer] of $60.00 daily. CM approach the patient to discuss availability to pay for medications. Patient burst into tears and stated I should have just stayed at home and . CM reassured patient that we will continue to work on this. CM contacted Buffy Paiz with [employer] the problem and she suggested that the patient speak with their financial office and they can work out a payment plan or arrange for financial assistance. CM also contacted [employer] about Medicaid and they stated they would try to expedite application. CM will continue to follow and assist as needed with discharge planning / needs DCP- Discharge Planning Updated by [id number]: Morena Garcia on 05/05/19 5:[address] LATE ENTRY -05/05/19 @ 1230 Patient Name: ROSALIA ADAMS Admission Status: Accout number: [id number] Admission Date: 05-04-2019 : 1970 Admission Diagnosis: Attending: MALLORIE SIERRA Current LOS: 1 Anticipated DC Date: Planned Disposition: Home Primary Insurance: MEDICAID [place] PENDING Discharge Planning Comments: CM met with patient to complete initial dc planning assessment. CM educated patient on the CM role and verbal consent given by patient to complete assessment. Patient lives at home alone where she is independent with her care. At discharge patient plans to return home and feels this is a safe discharge. Patient states that her brother lives next door. Patient stated that she has 30 steps to go up to get into her apartment. She is concerned because she is having surgery today on her ankle. CM discussed availability of home health, rehab services, and medical equipment. Patient states that she does have a wheelchair and walker. Patient has Medicaid pending and will most likely need HH for PT upon discharge. SHAINA signed for no preference in HH. Patient will also need assistance with medications upon discharge. CM will continue to follow and will assist as needed with dc plans/needs. Residential Mortgage Underwriter: Morena Garcia DCPIA - Discharge Planning Initial Assessment Updated by [email or web address]: Morena Garcia on 05/05/19 6:25 pm * Is the patient Alert and Oriented? Yes * How many steps to enter\exit or inside your home? 30 * PCP ANANTH * Pharmacy [facility] / [place] * Preadmission Environment Home Alone * ADLs Independent * Other Equipment W/C, WALKER * List name and contact numbers for known caregivers / representatives who currently or will assist patient after discharge: CHANTELL DIETZ - SISTER- [phone] VILMA MALONEY- SON- [phone] * Verbal permission to speak to the caregivers and representatives has been obtained from the patient. Yes * Community resources currently utilized None * Additional services required to return to the preadmission environment? No * Can the patient safely return to the preadmission environment? Yes * Has this patient been hospitalized within the prior 30 days at any hospital? No Coverage Notice Reviewer: [id number] - Morena Garcia Notice Issued Date-Time: 05/05/2019 12:30 Notice Type: Patient Choice Letter Notice Delivered To: Patient Relationship to Patient: Self Salesperson Fashion Accessories Name: Delivery Method: HAND - Hand Delivered Stephania Days: Prior Verbal Notification: Recipient Understood Notice: Yes Recipient Signature: Yes Med Rec Note Co-signed by Attending: Coverage Notice Comment: Last DP export: 05/09/19 7:10 p Patient Name: ROSALIA ADAMS Page [id number] at 202 All edits/amendments must be made on the electronic document DICTATION DATE: 05/09/192027 SUBSTITUTE NURSE: JEREMIAH 05/09/192027 RPT#: [id number] DC DATE:05/09/19 STATUS: DIS IN [facility] [address] [place] [address] END OF REPORT
--- NOTE | 2019-05-09 20:42 | MORECARE ---
CASE MANAGEMENT DISCHARGE SUMMARY PATIENT: ROSALIA ADAMS UNIT: [id number] ADM DATE: 05/04/19 AGE: 48 : 66 SEX: F ROOM/BED: D.1204 AUTHOR: LORETA,DOC PHYSICIAN: REFERRING PHYSICIAN: MALLORIE SIERRA MD DATE OF SERVICE: 05/09/19 Discharge Plan Patient Name: ROSALIA ADAMS Facility: [facility]:[place] : 1970 Planned Disposition: Home Anticipated Discharge Date: Discharge Date: 05/09/2019 Expected LOS: Initial Reviewer: [email or web address] Initial Review Date: 05/05/2019 Generated: 05/09/19 9:41 pm Comments DCP- Discharge Planning Updated by [email or web address]: Morena Garcia on 05/09/19 7:[address] Late Entry 05/09/19 CM got with Buffy Paiz @ [place] [phone]. CM explained that patient doesn't meet for Medicaid spend- down d/t not being permanently disabled. CM spoke with patient and gave Buffy Paiz patient's number in room to see if they can work out a solution. CM explained that if they couldn't work things out we may have to set her up as an outpatient here at hospital. CM asked if the patient is capable of teaching would she be able to administer to herself since we will not be able to get Home Health d/t no insurance provider. Buffy Paiz stated yes they would be able to teach her and provide an extension set to PICC line so patient could reach to administer. Patient would not agree to daniel quote at first but Buffy Paiz told her that if she agrees to daniel quote as long as she pays something each month they will not stop services. Patient then agreed. CM explained that if her Medicaid gets approved then it will take care of her infusions. CM set up for patient to come to Outpatient @ [facility] for PICC dressing changes and Vanc trough weekly for 6 weeks. The first appointment will be May 15 @ 1100. Patient states she will have transportation to outpatient for her appointments. CM has notified nursing of all information. Buffy Paiz is here doing patient teaching at bedside. CM will continue to follow and assist as needed with discharge planning / needs DCP- Discharge Planning Updated by [email or web address]: Morena Garcia on 05/09/19 7:[address] Late Entry 05/08/19 CM was notified that patient is going to need home IV antibiotics upon discharge. CM notified Dr. Woo of patient not having a payer source. He stated that the patient has osteomyelitis and CDC requires IV antibiotics for 6 wks. CM called several infusion companies to get daniel quotes. CM received a daniel quote from [employer] of 43.62 daily for Vancomycin 1GM q 12 hr for 6 weeks. [employer] of $60.00 daily. CM approach the patient to discuss availability to pay for medications. Patient burst into tears and stated I should have just stayed at home and . CM reassured patient that we will continue to work on this. CM contacted Buffy Paiz with [employer] the problem and she suggested that the patient speak with their financial office and they can work out a payment plan or arrange for financial assistance. CM also contacted [employer] about Medicaid and they stated they would try to expedite application. CM will continue to follow and assist as needed with discharge planning / needs DCP- Discharge Planning Updated by [id number]: Morena Garcia on 05/05/19 5:[address] LATE ENTRY -05/05/19 @ 1230 Patient Name: ROSALIA ADAMS Admission Status: Accout number: [id number] Admission Date: 05-04-2019 : 1970 Admission Diagnosis: Attending: MALLORIE SIERRA Current LOS: 1 Anticipated DC Date: Planned Disposition: Home Primary Insurance: MEDICAID [place] PENDING Discharge Planning Comments: CM met with patient to complete initial dc planning assessment. CM educated patient on the CM role and verbal consent given by patient to complete assessment. Patient lives at home alone where she is independent with her care. At discharge patient plans to return home and feels this is a safe discharge. Patient states that her brother lives next door. Patient stated that she has 30 steps to go up to get into her apartment. She is concerned because she is having surgery today on her ankle. CM discussed availability of home health, rehab services, and medical equipment. Patient states that she does have a wheelchair and walker. Patient has Medicaid pending and will most likely need HH for PT upon discharge. SHAINA signed for no preference in HH. Patient will also need assistance with medications upon discharge. CM will continue to follow and will assist as needed with dc plans/needs. Paint Line Production Supervisor: Morena Garcia DCPIA - Discharge Planning Initial Assessment Updated by [email or web address]: Morena Garcia on 05/05/19 6:25 pm * Is the patient Alert and Oriented? Yes * How many steps to enter\exit or inside your home? 30 * PCP ANANTH * Pharmacy [facility] / [place] * Preadmission Environment Home Alone * ADLs Independent * Other Equipment W/C, WALKER * List name and contact numbers for known caregivers / representatives who currently or will assist patient after discharge: CHANTELL DIETZ - SISTER- [phone] VILMA MALONEY- SON- [phone] * Verbal permission to speak to the caregivers and representatives has been obtained from the patient. Yes * Community resources currently utilized None * Additional services required to return to the preadmission environment? No * Can the patient safely return to the preadmission environment? Yes * Has this patient been hospitalized within the prior 30 days at any hospital? No Coverage Notice Reviewer: [id number] - Morena Garcia Notice Issued Date-Time: 05/05/2019 12:30 Notice Type: Patient Choice Letter Notice Delivered To: Patient Relationship to Patient: Self Data Entry Name: Delivery Method: HAND - Hand Delivered Stephania Days: Prior Verbal Notification: Recipient Understood Notice: Yes Recipient Signature: Yes Med Rec Note Co-signed by Attending: Coverage Notice Comment: Last DP export: 05/09/19 7:28 p Patient Name: ROSALIA ADAMS Page [id number] at 2042 All edits/amendments must be made on the electronic document DICTATION DATE: 05/09/192040 BROOMCORN SEEDER: JEREMIAH 05/09/192040 RPT#: [id number] DC DATE:05/09/19 STATUS: DIS IN [facility] [address] [place] [address] END OF REPORT
== END 2019-05-09 18:22 | disposition home or self-care (01) | DRG 464 ==
LOC: D.ER 13:36 → D.M3 17:15
PROVIDERS: Family Medicine; Orthopaedic Surgery; ADMIT Internal Medicine Nephrology; ATTEND Internal Medicine Nephrology
PROC: 0JBP0ZX Excision of Left Lower Leg Subcutaneous Tissue and Fascia, Open Approach, Diagnostic (ICD-10-PCS; 2019-05-05)
PROC: 0JBP0ZZ Excision of Left Lower Leg Subcutaneous Tissue and Fascia, Open Approach (ICD-10-PCS; principal; 2019-05-05 10:00)
PROC: 0QPK04Z Removal of Internal Fixation Device from Left Fibula, Open Approach (ICD-10-PCS; 2019-05-05 10:00)
PROC: 02HV33Z Insertion of Infusion Device into Superior Vena Cava, Percutaneous Approach (ICD-10-PCS; 2019-05-08)
PROC: B5181ZA Fluoroscopy of Superior Vena Cava using Low Osmolar Contrast, Guidance (ICD-10-PCS; 2019-05-08)
DX: T84.625A Infection and inflammatory reaction due to internal fixation device of left fibula, initial encounter (principal); L03.116 Cellulitis of left lower limb; M86.8X6 Other osteomyelitis, lower leg; Y83.9 Surgical procedure, unspecified as the cause of abnormal reaction of the patient, or of later complication, without mention of misadventure at the time of the procedure; B95.8 Unspecified staphylococcus as the cause of diseases classified elsewhere; D64.9 Anemia, unspecified

== ENCOUNTER 2019-05-11 17:08 | Emergency (ER) | payer SELFPAY ==
[~2019-05-11] VITALS: Ht 170.2 cm; Wt 72.7 kg
[~2019-05-11 17:08] MED LIST: BENADRYL25 MG PO; IBUPROFEN800 MG PO; MULTI-DAY VITAM1 TAB PO; PROBIOTIC BLEN1 EACH PO; PROZAC20 MG PO; VANCOMYCIN 1 GM/1 G1 IV
[2019-05-11 17:24] VITALS: Ht 170.2 cm; Wt 72.7 kg
[2019-05-11] MEDS ORDERED: VIBRAMYCIN 100100 MG PO (19:41)
[2019-05-11] MEDS ORDERED: VISTARIL25 MG PO (19:43)
[2019-05-11] MEDS ORDERED: STERAPRED DS 1010 MG PO (19:43)
[2019-05-11 20:04] VITALS: BP 143/85
== END 2019-05-11 20:06 | disposition home or self-care (01) ==
LOC: D.ER 17:08
DX: L27.0 Generalized skin eruption due to drugs and medicaments taken internally (principal); T36.8X5A Adverse effect of other systemic antibiotics, initial encounter

== ENCOUNTER 2019-05-15 11:06 | Outpatient (CLI) | payer SELFPAY, MEDICAID ==
[~2019-05-15] VITALS: Ht 170.2 cm; Wt 72.6 kg
[~2019-05-15 11:06] MED LIST changes: +STERAPRED DS 1010 MG PO; +VIBRAMYCIN 100100 MG PO; +VISTARIL25 MG PO
--- NOTE | 2019-05-15 14:08 | NUR ---
1120-RECD TO ROOM 2512 FOR VANC TROUGH AND PICC LINE DRESSING CHANGE PER DR MASTERS. 1130-PATIENT BECOMES IRATE AND EMOTIONAL THAT SHE IS HERE TO HAVE HER PICC REMOVED AND WE SHOULD KNOW THAT. STATES SHE CAME IN TO THE ER OVER THE WEEKEND FOR A RASH."THE ER MD TOOK ME OFF OF VANCOMYCIN AND SAID YOU WOULD REMOVE MY PICC LINE TODAY". ER RECORD WAS ACCESSED BUT NO ORDER TO D/C PICC. DISCHARGE INSTRUCTIONS SAY FOR HER TO FOLLOW UP WITH PRIMARY MD. 1200-DR MASTERS CONTACTED. SITUATION REVIEWED. HE STATES PRIMARY MD SHOULD HANDLE HER ANTIBIOTICS AND MANAGE HER PICC. 1215-CALL IN TO DR WADSWORTH. SPOKE WITH HIS OFFICE NURSE, ALVAREZ BOGGS. SHE STATES THIS PATIENT CALLED BUT DID NOT WANT TO COME IN TO THE OFFICE FOR EVALUATION. EXPLAINED PTS HISTORY AND CURRENT SITUATION. 1230-TELEPHONE ORDERS RECD TO REMOVE PICC. 1245-PICC REMOVED AT 44CM WITHOUT DIFFICULTY. WOUND CARE INSTRUCTIONS REVIEWED. PATIENT NOW WANTS SUTURES FROM OPERATIVE SITE REMOVED. EXPLAINED THAT DR MASTERS WILL REMOVE THESE AT SCHEDULED OFFICE APPOINTMENT. BECOMES TEARFUL AND SAYS THEY TOLD ME YOU WOULD REMOVE STITCHES TODAY. I REASSURED HER 10-14 DAYS IS THE NORMAL TIMEFRAME TO LEAVE STITCHES IN AFTER SURGERY. 1300-CONTACTED STEFFANY AT DR MASTERS TO VERIFY APPOINTMENT AND THAT THEY WOULD REMOVE SUTURES AT THAT TIME. 1305-PATIENT DISCHARGED WITH ABOVE INFORMATION. AMBULATORY PER REQUEST.
[2019-05-15 14:26] VITALS: BP 142/82; Ht 170.2 cm; Wt 72.6 kg
== END 2019-05-15 13:05 | disposition home or self-care (01) ==
LOC: D.OPS 11:06 → EDSTATUS 11:30 → D.OPS 11:30
PROVIDERS: ATTEND Orthopaedic Surgery
DX: M86.262 Subacute osteomyelitis, left tibia and fibula (principal)

== ENCOUNTER 2019-08-03 15:45 | Emergency (ER) | payer SELFPAY ==
[~2019-08-03] VITALS: Ht 170.2 cm; Wt 70.5 kg
[2019-08-03 15:56] VITALS: Ht 170.2 cm; Wt 70.5 kg
[2019-08-03] MEDS ORDERED: VIBRAMYCIN 100100 MG PO (18:34)
[2019-08-03] MEDS ORDERED: BACLOFEN20 M1 PO (18:34)
[2019-08-03] MEDS ORDERED: VOLTAREN75 MG PO (18:34)
[2019-08-03 20:10] VITALS: BP 142/84
== END 2019-08-03 20:10 | disposition home or self-care (01) ==
LOC: D.ER 15:45
DX: S09.93XA Unspecified injury of face, initial encounter (principal); W19.XXXA Unspecified fall, initial encounter; Y93.9 Activity, unspecified; Y92.9 Unspecified place or not applicable; S01.21XA Laceration without foreign body of nose, initial encounter; M25.512 Pain in left shoulder; J45.909 Unspecified asthma, uncomplicated